=== PATIENT | female | born 1985 | race Caucasian/White ===

== ENCOUNTER → 2017-01-11 | Outpatient (CLI) | payer OTHER | LOC: ULTRA 14:21 | DX: R10.9 Unspecified abdominal pain (principal) ==

== ENCOUNTER → 2017-08-03 | Outpatient (CLI) | payer OTHER | LOC: ULTRA 08-02 06:26 | DX: N83.291 Other ovarian cyst, right side (principal); R55 Syncope and collapse ==

== ENCOUNTER → 2017-08-09 | Outpatient (CLI) | payer OTHER | LOC: CAT | DX: R51 Headache (principal) ==

== ENCOUNTER → 2017-12-29 | Outpatient (CLI) | payer OTHER | LOC: MRI 10:02 | DX: K57.92 Diverticulitis of intestine, part unspecified, without perforation or abscess without bleeding (principal); R10.12 Left upper quadrant pain; E03.9 Hypothyroidism, unspecified ==